=== PATIENT | female | born 1940 | race Hispanic/Latino ===

== ENCOUNTER 2017-06-19 10:46 | Emergency (ER) | payer OTHER, MEDICARE | END 2017-06-19 11:35 | disposition home or self-care (01) | LOC: EDH 10:46 | DX: B02.9 Zoster without complications (principal); E11.9 Type 2 diabetes mellitus without complications; I10 Essential (primary) hypertension; Z90.710 Acquired absence of both cervix and uterus ==

== ENCOUNTER 2017-08-30 21:27 | Inpatient (IN) | payer OTHER, MEDICARE ==
[~2017-08-30] VITALS: Ht 152.4 cm; Wt 70.8 kg
[2017-08-30 21:56] LABS: BASOPHILS % (AUTO) 0.2 % (0.0-5.0); EOSINOPHILS % (AUTO) 0.2 % (0.0-8.0); HEMATOCRIT 38.6 % (36-48); LYMPHOCYTES % (AUTO) 13.7 % (21.0-51.0); MEAN CORPUSCULAR HEMOGLOBIN 31.5 pg (27.0-33.0); MEAN CORPUSCULAR HGB CONC 34.1 g/dL (32.0-36.0); MEAN CORPUSCULAR VOLUME 92.3 fL (79-99); MONOCYTES % (AUTO) 4.3 % (3.0-13.0); NEUTROPHILS % (AUTO) 81.6 % (40.0-77.0); PLATELET COUNT (AUTO) 222 K/uL (130-400); RED BLOOD CELL COUNT(AUTO) 4.18 MIL/uL (4.00-5.50); RED CELL DISTRIBUTION WIDTH 13.2 % (11.0-15.5)
[2017-08-30 22:06] LABS: CREATININE 0.9 mg/dL (0.5-1.5); POTASSIUM 3.9 mmol/L (3.5-5.1)
[2017-08-30] MEDS ORDERED: ONDANSETRON HCL 4 MG/2 ML VIAL ONE (22:07)
[2017-08-30] MEDS ORDERED: SODIUM CHLORIDE 0.9% 1000ML 1,000 ML IV ONE (22:07)
[2017-08-30 22:11] LABS: ALBUMIN 3.5 g/dL (3.5-5.0); BILIRUBIN,DIRECT 0.1 mg/dL (0.0-0.3); BILIRUBIN,TOTAL 0.5 mg/dL (0.2-1.0); TOTAL PROTEIN, SERUM 7.3 g/dL (6.0-8.3)
[2017-08-30] MEDS ORDERED: MORPHINE SULFATE 4 MG/1ML SYG ONE (23:05)
[2017-08-30] MEDS ORDERED: CEFTRIAXONE SODIUM 1 GM ONE (23:32)
[2017-08-31 00:55] VITALS: BP 123/56
[2017-08-31] MEDS ORDERED: LISI10TA7 PO (00:59)
[2017-08-31] MEDS ORDERED: CIPR-278 PO (00:59)
[2017-08-31] MEDS ORDERED: ONDA4TAB9 PO (00:59)
[2017-08-31] MEDS ORDERED: METF500T6 PO (00:59)
[2017-08-31] MEDS ORDERED: METO50 PO (00:59)
[2017-08-31] MEDS ORDERED: TAMS0.4C32 PO (00:59)
[2017-08-31] MEDS ORDERED: TYL3 PO (00:59)
[2017-08-31 01:25] LABS: APPEARANCE,URINE Clear (CLEAR); BILIRUBIN,URINE Negative (NEGATIVE); COLOR,URINE Yellow (YELLOW); GLUCOSE, URINE (UA) >=1000 mg/dL (NEGATIVE); KETONES,URINE 15 mg/dL (NEGATIVE); LEUKOCYTE ESTERASE ,URINE Small (NEGATIVE); NITRATE,URINE Positive (NEGATIVE); OCCULT BLOOD,URINE Moderate (NEGATIVE); PROTEIN,URINE POS 1+ (NEGATIVE); UROBILINOGEN,URINE 0.2 mg/dL (0.2-1.0)
[2017-08-31 01:42] LABS: BACTERIA,URINE Few /HPF (None Seen); MUCUS,URINE Moderate LPF (None Seen); SQUAMOUS EPITHELIAL CELL,UR Few /HPF (0-2)
[2017-08-31] MEDS ORDERED: POTASSIUM CHLORIDE 10% ELIXIR 20 MEQ/15 ML UDCUP PO PRN (01:45)
[2017-08-31] MEDS ORDERED: LACTULOSE 20 GM/30 ML UDCUP PO PRN (01:45)
[2017-08-31] MEDS ORDERED: PHARMACY COMMUNICATION MISC SCH (01:45)
[2017-08-31] MEDS ORDERED: MEPERIDINE-PF 50 MG/ML SYG IM PRN (01:45)
[2017-08-31] MEDS ORDERED: POTASSIUM CHLORIDE 20MEQ/100ML 100 ML IV PRN (01:45)
[2017-08-31] MEDS ORDERED: CLONIDINE HCL 0.1 MG TABLET PO PRN (01:45)
[2017-08-31] MEDS ORDERED: DIPHENHYDRAMINE HCL 25 MG CAPSULE PO PRN (01:45)
[2017-08-31] MEDS ORDERED: GLUCAGON 1MG KIT 1 MG ML IM PRN (01:45)
[2017-08-31] MEDS ORDERED: MAG HYDROX/AL HYDROX/SIMETH ES 30 ML SUSP UDCUP PO PRN (01:45)
[2017-08-31] MEDS ORDERED: NITROGLYCERIN 0.4 MG SL TAB SL PRN (01:45)
[2017-08-31] MEDS ORDERED: ZOLPIDEM TARTRATE 5 MG TAB PO PRN (01:45)
[2017-08-31] MEDS ORDERED: MEPERIDINE-PF 25 MG/ML SYG IV PRN (01:45)
[2017-08-31] MEDS ORDERED: LIDOCAINE HCL-MPF 1% 2ML VIAL IJ PRN (01:45)
[2017-08-31] MEDS ORDERED: ACETAMINOPHEN 325 MG TAB PO PRN ×2 (01:45)
[2017-08-31] MEDS ORDERED: DEXTROSE 50%-WATER 50 ML DISP.SYRIN IV PRN (01:45)
[2017-08-31] MEDS ORDERED: GUAIFENESIN-DM 200/20 MG 10 ML PO PRN (01:45)
[2017-08-31] MEDS ORDERED: GUAIFENESIN SUGAR-FREE 100 MG/5 ML UDCUP PO PRN (01:45)
[2017-08-31] MEDS ORDERED: DiphenhydrAMINE HCL 50 MG/ML VIAL IVP PRN (01:45)
[2017-08-31] MEDS ORDERED: ONDANSETRON HCL MDV 20ML 2 MG/ML VIAL IVP PRN (01:45)
[2017-08-31] MEDS: CEFTRIAXONE SODIUM 1 GM IVP SCH (02:00)
[2017-08-31 03:15] VITALS: BP 98/51
[2017-08-31 05:25] LABS: HEMATOCRIT 34.2 % (36-48); MEAN CORPUSCULAR HEMOGLOBIN 33.1 pg (27.0-33.0); MEAN CORPUSCULAR HGB CONC 35.3 g/dL (32.0-36.0); MEAN CORPUSCULAR VOLUME 93.7 fL (79-99); PLATELET COUNT (AUTO) 191 K/uL (130-400); RED BLOOD CELL COUNT(AUTO) 3.65 MIL/uL (4.00-5.50); RED CELL DISTRIBUTION WIDTH 13.4 % (11.0-15.5); WHITE BLOOD COUNT (AUTO) 13.7 K/uL (4.8-10.8)
[2017-08-31 05:56] LABS: CREATININE 0.7 mg/dL (0.5-1.5)
[2017-08-31] MEDS: TRAMADOL HCL 50 MG TABLET PO PRN ×2 (06:10→21:08)
[2017-08-31] MEDS: SODIUM CHLORIDE 0.9% 1000ML 1,000 ML IV SCH ×2 (06:15→18:01)
[2017-08-31] MEDS: INSULIN HUMULIN R 100 UNIT/ML 3ML SQ SCH ×5 (06:45→21:05)
[2017-08-31 07:46] VITALS: BP 104/57
[2017-08-31] MEDS ORDERED: LISINOPRIL 10 MG TABLET PO SCH (09:00)
[2017-08-31] MEDS: METOPROLOL TARTRATE 50 MG TAB PO SCH (09:05)
[2017-08-31] MEDS: TAMSULOSIN HCL 0.4 MG CAP.ER.24H PO SCH (09:05)
[2017-08-31] MEDS: PANTOPRAZOLE SODIUM 40 MG TABLET.DR PO SCH (09:05)
[2017-08-31 11:19] VITALS: BP 92/54
[2017-08-31 16:42] VITALS: BP 100/46
[2017-08-31] MEDS: METFORMIN HCL 500 MG TABLET PO SCH (19:35)
[2017-08-31 20:08] VITALS: BP 116/62
[2017-09-01] VITALS (28 sets, daily range): BP systolic 98–157; BP diastolic 52–82
[2017-09-01] MEDS: CEFTRIAXONE SODIUM 1 GM IVP SCH (01:36)
[2017-09-01] MEDS: SODIUM CHLORIDE 0.9% 1000ML 1,000 ML IV SCH ×3 (05:10→09:55)
[2017-09-01 05:32] LABS: BASOPHILS % (AUTO) 0.5 % (0.0-5.0); EOSINOPHILS % (AUTO) 1.7 % (0.0-8.0); HEMATOCRIT 37.4 % (36-48); LYMPHOCYTES % (AUTO) 43.2 % (21.0-51.0); MEAN CORPUSCULAR HEMOGLOBIN 31.8 pg (27.0-33.0); MEAN CORPUSCULAR HGB CONC 33.6 g/dL (32.0-36.0); MEAN CORPUSCULAR VOLUME 94.8 fL (79-99); MONOCYTES % (AUTO) 6.3 % (3.0-13.0); NEUTROPHILS % (AUTO) 48.3 % (40.0-77.0); PLATELET COUNT (AUTO) 204 K/uL (130-400); RED BLOOD CELL COUNT(AUTO) 3.95 MIL/uL (4.00-5.50); RED CELL DISTRIBUTION WIDTH 13.4 % (11.0-15.5)
[2017-09-01] MEDS: INSULIN HUMULIN R 100 UNIT/ML 3ML SQ SCH ×4 (05:35→22:00)
[2017-09-01 05:52] LABS: ALBUMIN 2.8 g/dL (3.5-5.0); BILIRUBIN,TOTAL 0.4 mg/dL (0.2-1.0); CREATININE 0.8 mg/dL (0.5-1.5); POTASSIUM 3.3 mmol/L (3.5-5.1); TOTAL PROTEIN, SERUM 6.7 g/dL (6.0-8.3)
[2017-09-01] MEDS: METOPROLOL TARTRATE 50 MG TAB PO SCH ×3 (07:52→13:34)
[2017-09-01] MEDS: POTASSIUM CHLORIDE 20 MEQ ERTAB PO PRN ×2 (07:53→13:35)
[2017-09-01] MEDS: METFORMIN HCL 500 MG TABLET PO SCH ×2 (08:00→16:49)
[2017-09-01] MEDS: TAMSULOSIN HCL 0.4 MG CAP.ER.24H PO SCH (08:32)
[2017-09-01] MEDS: PANTOPRAZOLE SODIUM 40 MG TABLET.DR PO SCH (08:32)
[2017-09-01] MEDS ORDERED: ISOVUE-370 50ML VIAL IV ONE (09:50)
[2017-09-01] MEDS ORDERED: LIDOCAINE PF 2% 5ML ABBOJECT ONE (11:11)
[2017-09-01] MEDS ORDERED: NEOSTIGMINE 5MG/5ML SYR IV ONE (11:11)
[2017-09-01] MEDS ORDERED: GLYCOPYRROLATE 0.2 MG/ML 5 ML VIAL ONE (11:11)
[2017-09-01] MEDS ORDERED: DEXAMETHASONE SOD PHOSPHATE 10MG/ML 1ML VIAL ONE (11:11)
[2017-09-01] MEDS ORDERED: ONDANSETRON HCL 4 MG/2 ML VIAL ONE (11:11)
[2017-09-01] MEDS ORDERED: FENTANYL CITRATE PF 50 MCG/1 ML 2ML VIAL ONE ×2 (11:12→11:26)
[2017-09-01] MEDS ORDERED: MIDAZOLAM HCL 1 MG/ML 2ML VIAL ONE (11:12)
[2017-09-01] MEDS ORDERED: PROPOFOL 10 MG/ML 20ML VIAL IV ONE (11:12)
[2017-09-01] MEDS: TRAMADOL HCL 50 MG TABLET PO PRN (20:48)
[2017-09-02 00:12] VITALS: BP 138/63
[2017-09-02] MEDS: CEFTRIAXONE SODIUM 1 GM IVP SCH (02:21)
[2017-09-02 04:12] VITALS: BP 122/62
[2017-09-02] MEDS: INSULIN HUMULIN R 100 UNIT/ML 3ML SQ SCH (05:36)
[2017-09-02 07:59] VITALS: BP 138/72
[2017-09-02] MEDS: METFORMIN HCL 500 MG TABLET PO SCH (09:03)
[2017-09-02] MEDS: METOPROLOL TARTRATE 50 MG TAB PO SCH (09:03)
[2017-09-02] MEDS: PANTOPRAZOLE SODIUM 40 MG TABLET.DR PO SCH (09:03)
[2017-09-02] MEDS: TAMSULOSIN HCL 0.4 MG CAP.ER.24H PO SCH (09:03)
== END 2017-09-02 11:25 | disposition home or self-care (01) | DRG 669 ==
LOC: EDH 21:27 → OBSVTOIN 23:00 → EDHIP 23:00 → 4BH 08-31 00:22
PROVIDERS: ADMIT Family Medicine; ATTEND Family Medicine
PROC: 0TC78ZZ Extirpation of Matter from Left Ureter, Via Natural or Artificial Opening Endoscopic (ICD-10-PCS; principal; 2017-09-01 11:09)
PROC: BT1F1ZZ Fluoroscopy of Left Kidney, Ureter and Bladder using Low Osmolar Contrast (ICD-10-PCS; 2017-09-01 11:09)
PROC: 0T778DZ Dilation of Left Ureter with Intraluminal Device, Via Natural or Artificial Opening Endoscopic (ICD-10-PCS; 2017-09-01 11:09)
DX: N13.2 Hydronephrosis with renal and ureteral calculous obstruction (principal); E11.9 Type 2 diabetes mellitus without complications; E78.5 Hyperlipidemia, unspecified; I10 Essential (primary) hypertension; Z90.710 Acquired absence of both cervix and uterus; Z90.49 Acquired absence of other specified parts of digestive tract
CPT/HCPCS: 36415; 74176; 74420; 80048; 80053; 80076; 81001; 82360; 82550; 82948; 83690; 84484; 85025; 85027; 87088; 87186; 88300; 93005; 96374; 96375; A4354; C1758; C1769; C2617; J0696; J1100; J1815; J1885; J2001; J2175; J2250; J2270; J2405; J2704; J2710; J3010; J3490; J7030; J7040; Q9967

== ENCOUNTER → 2017-10-14 | Outpatient (CLI) | payer OTHER, MEDICARE ==
[~2017-10-14] MED LIST: CIPR-278 PO; LISI10TA7 PO; METF500T6 PO; METO50 PO; ONDA4TAB9 PO; TAMS0.4C32 PO; TYL3 PO
== END | disposition home or self-care (01) ==
LOC: RAH 14:10
PROVIDERS: ATTEND Urology
DX: Z09 Encounter for follow-up examination after completed treatment for conditions other than malignant neoplasm (principal); Z87.442 Personal history of urinary calculi
CPT/HCPCS: 76770

== ENCOUNTER → 2021-06-15 | Outpatient (CLI) | payer OTHER, MEDICARE ==
[~2021-06-15] MED LIST changes: +GADOTERATE MEGLUMINE 10 MMOL/20 ML VIAL IV ONE; +LISI10TA24 PO; -LISI10TA7 PO; +METF-444 PO; -METF500T6 PO; +ONDA-104 PO; -ONDA4TAB9 PO
== END | disposition home or self-care (01) ==
LOC: RAH 08:35
PROVIDERS: ATTEND Otolaryngology
DX: H90.3 Sensorineural hearing loss, bilateral (principal)
CPT/HCPCS: 70553; A9575